=== PATIENT | male | born 1970 | race Caucasian/White ===

== ENCOUNTER 2023-12-06 18:52 | Emergency (ER) | payer OTHER, SELFPAY ==
--- NOTE | ~2023-12-06 | XR_ITS ---
EXAMINATION: XR LUMBOSACRAL SPINE CLINICAL INFORMATION: severe pain radiating down right leg COMPARISON: None available. TECHNIQUE: Three views of the lumbosacral spine. FINDINGS: No fracture. No subluxation. No bone destruction. Alignment of vertebrae normal. There is mild lumbar disc height narrowing at L3-L4. Minor degenerative lipping at the anterior endplates of the lumbar vertebrae. Facet joints are normal. XR/XR lumbar spine 2-3V IMPRESSION: 1. No acute abnormality. 2. Mild degenerative spondylosis of lumbar spine.
--- NOTE | 2023-12-06 19:26 | ED_ITS ---
HPI - General Adult General Chief complaint: Back Pain/Injury Stated complaint: leg/back pain Time Seen by Provider: 12/06/23 21:34 Source: patient Mode of arrival: ambulatory Limitations: no limitations History of Present Illness HPI narrative: 53 yo male with PMH of back pain no IVDA, not on thinners, no loss of control of bowel or bladder no saddle anesthesia has noted about 3 weeks of R lower back pain radiating down R leg with some tingling in toes. No known trauma. His PCP told him to use ice. [facility] gave him prednisone that has not helped. complaint: back pain Onset (ago): week(s) (3) Location: back Radiation: distal Severity: severe Quality: aching Pain Consistency: constant Relieving factors: immobilization Exacerbating factors: movement Associated symptoms: denies other symptoms Treatments prior to arrival: other Related Data Home Medications ?Medication ?Instructions ?Recorded ?Confirmed albuterol sulfate 90 mcg/actuation 2 puff inhalation Q6H PRN 08/11/21 aerosol inhaler cholecalciferol (vitamin D3) 125 125 mcg PO DAILY 08/11/21 mcg (5,000 unit) capsule diclofenac sodium 1 % topical gel 4 g topical QID 08/11/21 epinephrine 0.3 mg/0.3 mL 0.3 mg IM Q4H PRN 08/11/21 injection, auto-injector (EpiPen 2-Dago) fluticasone propionate 44 2 puff inhalation BID 08/11/21 mcg/actuation HFA aerosol inhaler (Flovent HFA) fluticasone propionate 50 1 spray intranasal DAILY 08/11/21 mcg/actuation nasal spray,suspension gabapentin 600 mg tablet 600 mg PO BID 08/11/21 levetiracetam 500 mg 1,000 mg PO DAILY 08/11/21 tablet,extended release 24 hr (Keppra XR) lidocaine 5 % topical cream 1 appl topical BID PRN 08/11/21 loratadine 10 mg tablet 10 mg PO DAILY 08/11/21 meloxicam 7.5 mg tablet 7.5 mg PO DAILY 08/11/21 pantoprazole 40 mg tablet,delayed 40 mg PO DAILY 08/11/21 release tretinoin 0.025 % topical cream 1 appl topical BEDTIME 08/11/21 Previous Rx's ?Medication ?Instructions ?Recorded diazepam 5 mg tablet (Valium) 5 mg PO TID PRN muscle spasm #12 12/06/23 tabs Allergies Allergy/AdvReac Type Severity Reaction Status Date / Time Penicillins [PENICILLINS] Allergy Unknown hives Verified 12/06/23 19:30 Review of Systems Review of Systems: Constitutional : No Weight loss, No Fever, No Chills, ENT/Mouth : No Hearing loss, No Ear Pain, No Nasal Congestion, No Sinus Pain, No Hoarseness, No sore throat, No Rhinorrhea, No Swallowing Difficulty Cardiovascular : No Chest Pain, No SOB Respiratory : No Cough, No Dyspnea Gastrointestinal : No Nausea, No Vomiting, No Diarrhea, No abdominal Pain, No Hematochezia, No Melena Genitourinary : No Dysuria, No Urinary Frequency, No Hematuria, No Urinary Incontinence, Musculoskeletal : positive back pain Skin : No Skin Lesions, No rash Neuro : No Weakness, No Numbness, No Paresthesias, no loss of bowel or bladder incontinence, no saddle anesthesia all other systems reviewed and are negative [facility] Past Medical History Attestation statement: The following information was validated with the patient. Source: old records reviewed Medical History GERD (gastroesophageal reflux disease) Seizures Family History Family History (Updated 08/11/21 @ 12:11 by Katrin Watters) Father Epilepsy Family/Other Epilepsy Family/Other Epilepsy Social History Social History Alcohol intake: never Patient Tobacco Use Status: Current everyday Tobacco user Advance Directives: No Advance Directives Information Provided: No Physical Exam ED Vital Signs: Vital Signs - 24 hr 12/06/23 19:29 12/06/23 21:32 Temperature 97.9 F 98 F Pulse Rate 80 65 Respiratory Rate 14 20 Blood Pressure 146/86 H 128/81 Pulse Oximetry 98 97 Oxygen Delivery Method Room Air Room Air BMI result Body Mass Index 32.9 Appearance: Alert. Oriented X3. No acute distress. Eyes: Pupils equal, round and reactive to light. ENT: Pharynx normal. Neck: Normal inspection. Neck supple. CVS: Normal heart rate and rhythm. Pulses normal. Respiratory: No respiratory distress. Breath sounds normal. Abdomen: Soft and nontender. Skin: Skin warm and dry. Normal skin color. Normal skin turgor. Extremities: No lower extremity edema. No calf ttp Neuro: Oriented X 3. No motor deficit. No sensory deficit. SILT inner thigh, antalgic gait, R lower back ttp , L5 5/5 bilaterally, distal NV intact Course Course Course Narrative: This is a rapid medical exam performed by Giovanni Vicente NP: Additional HPI, ROS, PE not included below will be deferred to primary provider. Patient is a 53-year-old male with BPH, colon CA, seizures presenting to the ED with complaint of back pain for the past 3 weeks. Went to [facility] and was given prednisone and toradol and discharged. Reports mid lower back pain radiating down right leg to foot, numbness to right foot. Denies saddle anesthesia, bowel or bladder incontinence, fevers, IVDU. Does report difficulty emptying bladder fully but reports known cysts on his testicles and is currently being worked up for prostate issues. Taking Tylenol and gabapentin (which is for his seizures) without relief. Plan: lumbar x-ray Medical Decision Making Medical Decision Making MDM Narrative: 53 yo male with PMH of seizures and GERD here with c/o R low back pain radiating down the leg no b/b incontinence no saddle anesthesia no red flags on exam no thinners no IVDA he is NV intact at this time needs outpatient PT and MRI - start on valium. DC out with PCP follow up. Differential Diagnosis Differential Diagnoses: The differential diagnosis associated with the presentation includes strain, sciatica, lumbar radiculopathy Admission/Observation Consideration of admission/observation: Escalation of care including admission/observation considered able to ambulate can trial muscle relaxer at home no cauda equina symptoms Independent Interpretation I performed an independent interpretation of an: Plain X-Ray (no fx) Radiology Impression Discussion of test interpretation with radiology: I have reviewed the radiologist's reading. Prescription Management I considered prescription management with: Pain Medication and Other Discharge Plan Discharge Clinical Impression: Lumbar radiculopathy Patient Disposition: Home, Self-Care Instructions: Lumbar Radiculopathy (ED) Additional Instructions: return loss of control of bowel or bladder, numbness in genital area, worsening pain or any other concerns follow up with your doctor for physical therapy and then outpatient MRI please ask for this Prescriptions: New diazepam [Valium] 5 mg tablet 5 mg PO TID PRN (Reason: muscle spasm) Qty: 12 0RF Rx Instructions: partial fill is okay No Action albuterol sulfate 90 mcg/actuation HFA aerosol inhaler 2 puff inhalation Q6H PRN diclofenac sodium 1 % gel 4 g topical QID Rx Instructions: apply to single knee, ankle, foot; for foot includes sole/toes/top of foot epinephrine [EpiPen 2-Dago] 0.3 mg/0.3 mL auto-injector 0.3 mg IM Q4H PRN fluticasone propionate 50 mcg/actuation spray,suspension 1 spray intranasal DAILY Rx Instructions: administer into each nostril Flovent HFA 44 mcg/actuation HFA aerosol inhaler 2 puff inhalation BID Rx Instructions: administer with spacer gabapentin 600 mg tablet 600 mg PO BID levetiracetam [Keppra XR] 500 mg tablet extended release 24 hr 1,000 mg PO DAILY lidocaine 5 % cream 1 appl topical BID PRN loratadine 10 mg tablet 10 mg PO DAILY meloxicam 7.5 mg tablet 7.5 mg PO DAILY pantoprazole 40 mg tablet,delayed release (DR/EC) 40 mg PO DAILY tretinoin 0.025 % cream 1 appl topical BEDTIME cholecalciferol (vitamin D3) 125 mcg (5,000 unit) capsule 125 mcg PO DAILY Print Language: Nauruan
[2023-12-06 19:29] VITALS: BP 146/86; PULSE 80; RESP 14; TEMP 36.6; O2SAT 98; BMI 32.9
[2023-12-06 21:32] VITALS: BP 128/81; PULSE 65; RESP 20; TEMP 36.6; O2SAT 97
[2023-12-06] MEDS: diazePAM 5 MG TABLET PO (22:15)
[2023-12-06 22:17] VITALS: BP 128/81; PULSE 65; RESP 20; TEMP 36.6; O2SAT 97
== END 2023-12-06 22:20 | disposition home or self-care (01) ==
PROVIDERS: Emergency Provider Emergency Medicine; PCP Internal Medicine
DX: M54.16 Radiculopathy, lumbar region (principal)
CPT/HCPCS: 72100; 99282; 99283